=== PATIENT | female | born 1980 | race Caucasian/White ===

== ENCOUNTER 2021-05-21 18:54 | Emergency (ER) | payer MEDICAID ==
[~2021-05-21] VITALS: Ht 167.6 cm; Wt 79.4 kg
[2021-05-21] MEDS ORDERED: HYDROCODON-ACE1 EAC7 PO (20:02)
[2021-05-21 20:13] VITALS: BP 134/65
== END 2021-05-21 20:13 | disposition home or self-care (01) ==
LOC: M.ERS 18:54
DX: S82.832A Other fracture of upper and lower end of left fibula, initial encounter for closed fracture (principal); Z90.710 Acquired absence of both cervix and uterus; W10.8XXA Fall (on) (from) other stairs and steps, initial encounter; Y93.89 Activity, other specified; Y92.89 Other specified places as the place of occurrence of the external cause; Y99.8 Other external cause status